=== PATIENT | female | born 1985 | race Caucasian/White ===

== ENCOUNTER 2020-09-07 10:53 | Observation (INO) ==
[2020-09-07] MEDS ORDERED: 0.9 % Sodium Chloride 1,000 ML IVC SCH ×2 (13:15→21:01)
[2020-09-07] MEDS ORDERED: Ondansetron 4 MG/2 ML VIAL IVP PRN ×2 (13:23→21:01)
[2020-09-07] MEDS ORDERED: cefOXitin 1,000 MG in 0.9 % Sodium Chloride Mini Bag 100 ML IVPB SCH (14:00)
[2020-09-07] MEDS ORDERED: CefOXitin 1,000 MG VIAL ONE (17:45)
[2020-09-07] MEDS ORDERED: Lidocaine HCL 4 ML Topical Solution (Laryng-O-Jet Kit Sterile Pak) TP ONE (17:48)
[2020-09-07] MEDS ORDERED: *HR* FentaNYL (PF) 100 MCG/2 ML VIAL ONE (17:51)
[2020-09-07] MEDS ORDERED: *HR* Rocuronium Bromide 50 MG/5 ML VIAL ONE (17:51)
[2020-09-07] MEDS ORDERED: *HR* Midazolam HCl 2 MG/2 ML VIAL ONE (17:51)
[2020-09-07] MEDS ORDERED: Lidocaine -MPF 2% 2 ML VIAL ONE (17:51)
[2020-09-07] MEDS ORDERED: Ondansetron 4 MG/2 ML VIAL ONE (17:51)
[2020-09-07] MEDS ORDERED: *HR* Propofol 200 MG/20 ML VIAL IVP ONE (17:51)
[2020-09-07] MEDS ORDERED: Dexamethasone 4 MG/ML VIAL ONE (17:51)
[2020-09-07] MEDS ORDERED: *HR* FentaNYL (PF) 100 MCG/2 ML VIAL IVP PRN (18:05)
[2020-09-07] MEDS ORDERED: Acetaminophen IV 1,000 MG/100 ML INFUS..BTL IVPB PRN (18:05)
[2020-09-07] MEDS ORDERED: Ketorolac 30 MG/ML VIAL IVP PRN (18:05)
[2020-09-07] MEDS ORDERED: *HR* Meperidine 25 MG/ML SYRINGE IVP PRN (18:05)
[2020-09-07] MEDS ORDERED: Promethazine 6.25 MG in Water for inj. (sterile) 20 ML IVPB PRN (18:05)
[2020-09-07] MEDS ORDERED: Naloxone 0.4 MG/ML INJ IVP PRN (18:05)
[2020-09-07] MEDS ORDERED: Scopolamine Patch 1.5 MG PATCH.TD72 ONE (18:06)
[2020-09-07] MEDS ORDERED: *HR* HYDROMORPHONE 2 MG/ML VIAL ONE (18:32)
[2020-09-07] MEDS ORDERED: *HR* PHENYLEPHRINE 1,000 MCG/10 ML SYRINGE IVP ONE (18:52)
[2020-09-07] MEDS: *HR* HYDROmorphone PF 0.5 MG/0.5 ML SYRINGE IVP PRN ×4 (19:32→20:15)
[2020-09-08] MEDS ORDERED: cefOXitin 1,000 MG in 0.9 % Sodium Chloride Mini Bag 100 ML IVPB SCH (02:00)
[2020-09-08] MEDS ORDERED: Ibuprofen 800 MG TABLET PO STA (07:03)
[2020-09-08] MEDS ORDERED: *HR* Promethazine 25 MG/ML VIAL IM ONE (07:39)
[2020-09-08 07:58] VITALS: BP 100/62
[2020-09-08] MEDS ORDERED: *HR* HYDROcodone/Acet 5/325 mg TABLET PO PRN (08:12)
[2020-09-08] MEDS ORDERED: Famotidine 20 MG TABLET PO ONE (08:14)
[2020-09-08] MEDS ORDERED: FLU Vac QV 20-21 (6Month+)/PF 0.5 ML SYRINGE IM ONE (09:42)
== END 2020-09-08 10:07 | disposition home or self-care (01) ==
LOC: 3ANU
PROVIDERS: ADMIT Surgery; ATTEND Surgery